=== PATIENT | female | born 1955 | race Caucasian/White ===

== ENCOUNTER 2018-06-22 15:37 | Emergency (ER) | payer OTHER ==
[~2018-06-22] VITALS: Ht 165.1 cm; Wt 70.9 kg
[2018-06-22 15:41] VITALS: Ht 165.1 cm; Wt 70.9 kg
[2018-06-22] MEDS ORDERED: PHEN-537 PO (18:34)
[2018-06-22] MEDS ORDERED: NITR-58 PO (18:34)
[2018-06-22] MEDS ORDERED: KETOROLAC 60 MG INJ IM STA (18:42)
--- NOTE | 2018-06-22 18:46 | ERD ---
ER Documentation Chief Complaint Chief Complaint PT HAS DYSURIA X 3 DAYS 06/02 FREQUENT URINATION HPI History of Present Illness: 63-year-old female with past medical history to include Crohn's disease and hypertension coming in today with complaint of dysuria for 3 days. Patient also reporting urinary frequency patient feels that she is having a little bit of abdominal pain that might be related to her Crohn's disease but does not like the pain is severe enough to be considered a Crohn's flareup. At home pharmacological/nonpharmacological treatment for symptoms: Patient reports drinking non-sweetened cranberry juice Denies social concerns; Denies recent foreign travel ROS All systems reviewed and are negative except as per history of present illness. Medications Home Meds Active Scripts Phenazopyridine Hcl* (Pyridium*) 100 Mg Tab, 100 MG PO TID PRN for URINARY PAIN, #8 TAB Prov:YAN HERNÁNDEZ NP 06/22/18 Nitrofurantoin Monohyd Macrocr* (Macrobid*) 100 Mg Capsr, 100 MG PO BID for BACTERIA IN URINE for 5 Days, CAP Prov:YAN HERNÁDNEZ NP 06/22/18 Allergies Allergies: Coded Allergies: Penicillins (Verified Allergy, Unknown, 06/22/18) PMhx/Soc Medical and Surgical Hx: pt denies Medical Hx, pt denies Surgical Hx Hx Alcohol Use: No Hx Substance Use: No Hx Tobacco Use: No Smoking Status: Never smoker FmHx Family History: No coronary disease Physical Exam Vitals Vital Signs Date Temp Pulse Resp B/P (MAP) Pulse Ox O2 O2 Flow FiO2 Time Delivery Rate 06/22/18 99.6 109 18 170/99 100 15:41 (122) Physical Exam Const: No acute distress Head: Atraumatic Eyes: Normal Conjunctiva ENT: Normal External Ears, Nose and Mouth. Neck: Full range of motion. No meningismus. Resp: Clear to auscultation bilaterally Cardio: Regular rate and rhythm, no murmurs Abd: Soft, suprapubic tenderness, non distended. Normal bowel sounds Skin: No petechiae or rashes Back: No midline or flank tenderness Ext: No cyanosis, or edema Neur: Awake and alert Psych: Normal Mood and Affect Results 24 hrs Laboratory Tests Test 06/22/18 17:44 Urine Color YELLOW Urine Clarity SLIGHTLY CLOUDY Urine pH 7.0 Urine Specific [place] 1.010 Urine Ketones NEGATIVE mg/dL Urine Nitrite NEGATIVE mg/dL Urine Bilirubin NEGATIVE mg/dL Urine Urobilinogen NEGATIVE mg/dL Urine Leukocyte Esterase NEGATIVE Darius/ul Urine Microscopic RBC 6 /HPF Urine Microscopic WBC 2 /HPF Urine Bacteria FEW /HPF Urine Hemoglobin NEGATIVE mg/dL Urine Glucose NEGATIVE mg/dL Urine Total Protein NEGATIVE mg/dl Current Medications Medications Dose Sig/Abimbola Start Time Status Last (Trade) Ordered Route PRN Stop Time Admin Dose Reason Admin Ketorolac 60 mg ONCE STAT 06/22/18 DC Tromethamine IM 18:42 (Toradol) 06/22/18 18:43 10 mg ONCE ONCE 06/22/18 Dexamethasone IM 19:00 (Decadron) 06/22/18 19:01 Procedures/MDM ED course includes a thorough examination and history. Medications: Ketorolac, dexamethasone for abdominal pain; history of Crohn's Imaging: -- Labs: Urinalysis Low suspicion for life-threatening medical emergency. Low suspicion for acute abdominal emergency that requires hospitalization or immediate surgical intervention. Low suspicion for infectious process that requires IV/IM antibiotics. Otherwise healthy patient presenting with constellation of symptoms likely representing uncomplicated bacteria in urine, dysuria as characterized by history, physical exam findings, lab findings. Urinalysis showing few bacteria, 2 WBCs, positive RBCs. No respiratory distress, otherwise relatively well appearing and nontoxic. Educated patient on plan of care for urine culture d due to results of urinalysis and wanting to confirm if Macrobid is the appropriate antibiotic since patient has a penicillin allergy and cephalexin is preferred. Patient educated on diagnoses, prescriptions, follow-up care, return precautions. Strict return precautions given for worsening condition; questions answered discharge. Disposition for discharge with followup in 2 days with PCP/clinic. Departure Diagnosis: Primary Impression: Bacteria in urine Additional Impression: Dysuria Condition: Stable Patient Instructions: Dysuria, Urinary Tract Infections in Women Referrals: COMMUNITY CLINICS YOU HAVE RECEIVED A MEDICAL SCREENING EXAM AND THE RESULTS INDICATE THAT YOU DO NOT HAVE A CONDITION THAT REQUIRES URGENT TREATMENT IN THE EMERGENCY DEPARTMENT. FURTHER EVALUATION AND TREATMENT OF YOUR CONDITION CAN WAIT UNTIL YOU ARE SEEN IN YOUR DOCTORS OFFICE WITHIN THE NEXT 1-2 DAYS. IT IS YOUR RESPONSIBILITY TO MAKE AN APPOINTMENT FOR FOLOW-UP CARE. IF YOU HAVE A PRIMARY DOCTOR --you should call your primary doctor and schedule an appointment IF YOU DO NOT HAVE A PRIMARY DOCTOR YOU CAN CALL OUR PHYSICIAN REFERRAL HOTLINE AT IF YOU CAN NOT AFFORD TO SEE A PHYSICIAN YOU CAN CHOSE FROM THE FOLLOWING [facility] CLINICS [facility] [address] [facility] [address] [facility] [address] [facility] [address] [facility] [address] [facility]. [facility] [address] [facility]. [facility] YOU HAVE RECEIVED A MEDICAL SCREENING EXAM AND THE RESULTS INDICATE THAT YOU DO NOT HAVE A CONDITION THAT REQUIRES URGENT TREATMENT IN THE EMERGENCY DEPARTMENT. FURTHER EVALUATION AND TREATMENT OF YOUR CONDITION CAN WAIT UNTIL YOU ARE SEEN IN YOUR DOCTORS OFFICE WITHIN THE NEXT 1-2 DAYS. IT IS YOUR RESPONSIBILITY TO MAKE AN APPOINTMENT FOR FOLOW-UP CARE. IF YOU HAVE A PRIMARY DOCTOR --you should call your primary doctor and schedule and appointment IF YOU DO NOT HAVE A PRIMARY DOCTOR YOU CAN CALL OUR PHYSICIAN REFERRAL HOTLINE AT . IF YOU CAN NOT AFFORD TO SEE A PHYSICIAN YOU CAN CHOSE FROM THE FOLLOWING [facility] [address] [place] [address] [facility] [address] [place] [address] [facility] [address] [place] [address] Additional Instructions: Thank you very much for allowing us to participate in your care. Your health and safety is our top priority at [facility]. It is important to read all discharge instructions and education provided in your discharge packet. Call your primary care doctor TOMORROW for an appointment during the next 2-4 days and bring all the information and medications prescribed. Have prescriptions filled and follow precisely the directions on the label. -Pyridium is a medication that will help with urinary type pain. This medication will make her urine turn orange. This is a normal side effect of the medication. -Macrobid Is an antibiotic; take this medication as listed on your prescription. You must complete the entire course of treatment that is listed on your prescription this is very important because it takes a certain number of days to kill the bacteria that is causing the infection. If the symptoms get worse and your provider is unavailable, return to the Emergency Department immediately. YAN HERNÁNDEZ NP Jun 22, 2018 18:46
[2018-06-22] MEDS ORDERED: DEXAMETHASONE 10 MG/ML 1 ML INJ IM ONE (19:00)
[2018-06-22 19:03] VITALS: BP 161/80; PULSE 102; RESP 19
== END 2018-06-22 19:05 | disposition home or self-care (01) ==
LOC: FTE 15:37
DX: N39.0 Urinary tract infection, site not specified (principal); I10 Essential (primary) hypertension
CPT/HCPCS: 81001; 96372; J1100; J1885; Z7502; 81003

== ENCOUNTER 2018-07-10 11:49 | Inpatient (IN) | payer OTHER ==
[~2018-07-10] VITALS: Ht 165.1 cm; Wt 68.4 kg
[~2018-07-10 11:49] MED LIST: NITR-58 PO; PHEN-537 PO
[2018-07-10] MEDS ORDERED: ONDANSETRON 4 MG INJ IV STA (12:43)
[2018-07-10] MEDS ORDERED: SOD CHLORIDE 0.9% 1,000 ML IV STA (12:43)
[2018-07-10] MEDS ORDERED: morphine 4 MG/ML VIAL IV STA (13:00)
--- NOTE | 2018-07-10 13:17 | ERD ---
ER Documentation Chief Complaint Chief Complaint FLANK PAIN AND DYSURIA WITH NO RELEIF WITH 5 DAYS OF ABX. NO HEMATURIA HPI 63-year-old female with a history of Crohn's disease presenting with suprapubic pressure-like pain that is a 6 out of 10, radiating to her lower back bilaterally. Symptoms are constant, with no alleviating or exacerbating factors. She has had associated subjective fevers and chills with nausea but no vomiting. She has also been constipated for the past few days with only very small bowel movements. She also complains of dysuria with difficulty urinating. She was here recently and diagnosed with a UTI based on her symptoms and was treated. She feels like she got better but then her symptoms got worse. Due to her symptoms, she has had decreased oral intake and decreased appetite. ROS All systems reviewed and are negative except as per history of present illness. Medications Home Meds Reported Medications Budesonide EC* (Budesonide EC*) 3 Mg Capdr...er, 9 MG PO DAILY, TAB 07/10/18 Amlodipine Besylate* (Amlodipine Besylate*) 10 Mg Tablet, 1 TAB ORAL DAILY 07/10/18 Discontinued Scripts Phenazopyridine Hcl* (Pyridium*) 100 Mg Tab, 100 MG PO TID PRN for URINARY PAIN, #8 TAB Prov:YAN HERNÁNDEZ NP 06/22/18 Nitrofurantoin Monohyd Macrocr* (Macrobid*) 100 Mg Capsr, 100 MG PO BID for BACTERIA IN URINE for 5 Days, CAP Prov:YAN HERNÁNDEZ V CHEMICAL LABORATORY TECHNICIAN 06/22/18 Allergies Allergies: Coded Allergies: Penicillins (Verified Allergy, Unknown, 07/10/18) PMhx/Soc Medical and Surgical Hx: pt denies Surgical Hx History of Surgery: Yes (Bowel resection) Hx Cardiac Disorders: Yes (Hypertension) Hx Miscellaneous Medical Probl: Yes (UTI, crohn's dz) Hx Alcohol Use: No Hx Substance Use: No Hx Tobacco Use: No Smoking Status: Never smoker FmHx Family History: No diabetes Physical Exam Vitals Vital Signs Date Temp Pulse Resp B/P (MAP) Pulse Ox O2 O2 Flow FiO2 Time Delivery Rate 07/10/18 102 18 141/84 100 Nasal 2.0 15:00 (103) Cannula 07/10/18 104 18 130/101 92 Room Air 14:00 (111) 07/10/18 99.4 115 20 151/76 98 11:55 (101) Physical Exam Const: No acute distress Head: Atraumatic Eyes: Normal Conjunctiva ENT: Normal External Ears, Nose and Mouth. Neck: Full range of motion. No meningismus. Resp: Clear to auscultation bilaterally Cardio: Regular rate and rhythm, no murmurs Abd: Soft, mild abdominal distention with diffuse mild tenderness to palpation. Hyperactive bowel sounds in left upper quadrant Skin: No petechiae or rashes Back: No midline or flank tenderness Ext: No cyanosis, or edema Neur: Awake and alert Psych: Normal Mood and Affect Result Diagram: 07/10/18 1253 07/10/18 1253 Results 24 hrs Laboratory Tests Test 07/10/18 12:53 07/10/18 14:15 07/10/18 14:24 White Blood Count 22.9 10^3/ul Red Blood Count 4.32 10^6/ul Hemoglobin 11.6 g/dl Hematocrit 37.3 % Mean Corpuscular Volume 86.3 fl Mean Corpuscular Hemoglobin 26.9 pg Mean Corpuscular 31.1 g/dl Hemoglobin Concent Red Cell Distribution Width 13.2 % Platelet Count 455 10^3/UL Mean Platelet Volume 10.3 fl Immature Granulocytes % 0.900 % Neutrophils % 89.0 % Lymphocytes % 3.8 % Monocytes % 6.1 % Eosinophils % 0.0 % Basophils % 0.2 % Nucleated Red Blood Cells % 0.0 /100WBC Immature Granulocytes # 0.200 10^3/ul Neutrophils # 20.4 10^3/ul Lymphocytes # 0.9 10^3/ul Monocytes # 1.4 10^3/ul Eosinophils # 0.0 10^3/ul Basophils # 0.1 10^3/ul Nucleated Red Blood Cells # 0.0 10^3/ul Urine Color NATALY Urine Clarity CLOUDY Urine pH 5.0 Urine Specific [place] 1.026 Urine Ketones NEGATIVE mg/dL Urine Nitrite NEGATIVE mg/dL Urine Bilirubin 1+ mg/dL Urine Urobilinogen 2+ mg/dL Urine Leukocyte Esterase NEGATIVE Darius/ul Urine Microscopic RBC 34 /HPF Urine Microscopic WBC 14 /HPF Urine Squamous Epithelial Cells FEW /HPF Urine Bacteria FEW /HPF Urine Mucus FEW /HPF Urine Hemoglobin 3+ mg/dL Urine Glucose NEGATIVE mg/dL Urine Total Protein 2+ mg/dl Sodium Level 137 mmol/L Potassium Level 3.7 mmol/L Chloride Level 96 mmol/L Carbon Dioxide Level 31 mmol/L Anion Gap 10 Blood Urea Nitrogen 17 mg/dl Creatinine 0.80 mg/dl Est Glomerular Filtrat > 60 mL/min Rate mL/min Glucose Level 107 mg/dl Calcium Level 9.6 mg/dl Total Bilirubin 0.7 mg/dl Direct Bilirubin 0.00 mg/dl Indirect Bilirubin 0.7 mg/dl Aspartate Amino Transf (AST/SGOT) 34 IU/L Alanine 39 IU/L Aminotransferase (ALT/SGPT) Alkaline Phosphatase 265 IU/L Total Protein 8.2 g/dl Albumin 4.1 g/dl Globulin 4.10 g/dl Albumin/Globulin Ratio 1.00 Prothrombin Time 14.5 Sec Prothrombin Time Ratio 1.1 INR International 1.12 Normalized Ratio Activated Partial Thromboplast 29.4 Sec Time POC Venous Lactate 1.8 mmol/L Current Medications Medications Dose Sig/Abimbola Start Time Status Last (Trade) Ordered Route PRN Stop Time Admin Dose Reason Admin Sodium 1,000 ml @ Q1H STAT 07/10/18 DC 07/10/18 Chloride 1,000 mls/hr IV 12:43 13:50 07/10/18 13:42 Ondansetron 4 mg ONCE STAT 07/10/18 DC 07/10/18 HCl (Zofran IV 12:43 13:50 Inj) 07/10/18 12:45 Morphine 4 mg ONCE STAT 07/10/18 DC 07/10/18 Sulfate IV 13:00 13:50 (morphine) 07/10/18 13:01 Sodium 1,050 ml BOLUS OVER 2 07/10/18 DC 07/10/18 Chloride HOURS STAT 14:04 14:42 (NS) IV* 07/10/18 14:07 100 ml @ ONCE STAT 07/10/18 DC 07/10/18 Metronidazole 100 mls/hr IVPB 14:04 15:24 07/10/18 15:03 Ceftriaxone 50 ml @ ONCE ONCE 07/10/18 DC 07/10/18 Sodium 100 mls/hr IVPB 14:30 14:42 07/10/18 14:59 Procedures/MDM EMERGENT LABS AND DIAGNOSTIC STUDIES: Lab Results above were reviewed and interpreted by me. CBC: Leukocytosis and thrombocytosis, concerning for acute infection CMP: No evidence of clinically significant electrolyte abnormality, acidosis, renal failure, hypoglycemia, liver disease, or biliary obstruction UA: abnormal, possible UTI Radiology Results as interpreted by Radiology below were reviewed by Maico Reyes MD: CT abdomen and pelvis: Acute colitis with fluid collection and mesentery Initial Nursing notes reviewed. Previous Medical Records requested via the Electronic Health Record. EMERGENCY DEPARTMENT COURSE / MEDICAL DECISION MAKING: Admit MDM: Patient is presenting with abdominal pain and work-up consistent with acute colitis with intra-abdominal fluid collection. There is no evidence of severe sepsis or septic shock at this time. She will require surgical evaluation. Patient's infectious symptoms have not stabilized, and the patient is at risk of rapid decompensation. The patient will be admitted for careful hydration, antibiotic therapy, and infectious source control. Patient did meet sepsis criteria once it was noted that she had colitis on CT. However her lactate is within normal limits and there is no evidence of severe sepsis or septic shock. She was treated with IV antibiotics. Accepting Care Team: Current data and ongoing care discussed. Time: Time of admission Primary Provider: Dr. Lara Consulting: Dr. Murray with surgery Outstanding Data: none Departure Diagnosis: Primary Impression: Acute colitis Additional Impression: Sepsis Sepsis type: sepsis due to unspecified organism Qualified Codes: A41.9 - Sepsis, unspecified organism Condition: Serious VLADIMIR REYES MD July 10, 2018 13:17
[2018-07-10] MEDS ORDERED: metroNIDAZOLE 500 MG/NS (PMX) 100 ML IVPB STA (14:04)
[2018-07-10] MEDS ORDERED: SODIUM CHLORIDE 0.9% 1L BAG IV* STA (14:04)
[2018-07-10] MEDS ORDERED: AMLO-147 ORAL (14:30)
[2018-07-10] MEDS ORDERED: CEFTRIAXONE 1 GM/50 ML (PMX) 50 ML IVPB ONE (14:30)
[2018-07-10] MEDS ORDERED: BUDE3CAP PO (14:30)
[2018-07-10] MEDS ORDERED: ONDANSETRON 4 MG INJ IV PRN ×2 (15:30)
[2018-07-10] MEDS: ACETAMINOPHEN 325 MG TAB PO PRN (16:41)
[2018-07-10] MEDS: DEXTROSE 5%-0.45% NACL 1,000 ML IV SCH (16:45)
[2018-07-10] MEDS: LEVOFLOXACIN 500MG/D5W (PMX) 100 ML IVPB SCH (16:45)
[2018-07-10 18:17] VITALS: Ht 165.1 cm; Wt 68.4 kg
[2018-07-10 18:27] VITALS: BP 126/65; PULSE 97; RESP 17
[2018-07-10 20:10] VITALS: BP 117/67; PULSE 93; RESP 16
--- NOTE | 2018-07-10 20:34 | HP ---
DATE OF ADMISSION: 07/10/2018 CHIEF COMPLAINT: Abdominal pain. HISTORY OF PRESENT ILLNESS: A 63-year-old female with a history of Crohn's disease status post right hemicolectomy, presented to emergency room with complaint of lower abdominal pain radiating to her b ack. The pain has been constant and associated with subjective fevers and nausea. The patient denie s any vomiting. She denies hematemesis. No bright red blood per rectum. No melena. The patient re ports anorexia. Initial evaluation revealed a temperature of 99.4. White blood cell count was elevated to 22,900. C AT scan of the abdomen and pelvis showed acute sigmoid colitis with chronic inflammatory changes as w ell as irregular fluid collection in the adjacent mesentery which appears to track to the sigmoid col on, may represent a fistula. Urinalysis shows 14 WBC with 3+ RBC, but leukocyte esterase was negativ e. PAST MEDICAL HISTORY: 1. Crohn's disease. 2. Hypertension. MEDICATIONS PRIOR TO ADMISSION: 1. Norvasc 10 mg p.o. daily. 2. Budesonide 9 mg p.o. daily. PAST SURGICAL HISTORY: Status post right hemicolectomy, status post hysterectomy. SOCIAL HISTORY: The patient lives at home. She denies tobacco or alcohol use. PHYSICAL EXAMINATION: GENERAL: Well-developed, well-nourished female who is in mild distress. VITAL SIGNS: Stable. Pulse rate was 110. HEENT: Extraocular muscles intact. Pupils are equal and reactive to light bilaterally. Sclerae are anicteric. Oropharynx is clear and moist. NECK: Supple, no JVD, no carotid bruits. LUNGS: Clear to auscultation bilaterally. CARDIAC: Rapid rate. No murmurs or gallops. ABDOMEN: Soft, diffusely tender to palpation, especially in the left lower quadrant region. Normoac tive bowel sounds. EXTREMITIES: No clubbing, cyanosis, or edema. NEUROLOGICAL: Nonfocal. LABORATORY DATA: Hemoglobin is 11.6. Basic metabolic panel is within normal limits. Albumin is 4.1 . Serum lactate is 1.8. ASSESSMENT: 1. A 63-year-old female with acute sigmoid colitis most probably representing Crohn's exacerbation. 2. Fluid collection in the mesentery adjacent to the sigmoid colon. Rule out fistula. 3. Hypertension. 4. Status post right hemicolectomy. 5. Status post hysterectomy. PLAN: 1. Admit to telemetry, n.p.o., IV Levaquin and Flagyl. 2. IV fluid hydration. 3. Pain control. 4. Antiemetics. 5. Surgical and GI consultations were requested. Dictated By: EMIL RUIZ/TOMMY Conf#: [id number] DID#: [id number]
[2018-07-10] MEDS: morphine 2 MG INJ IV PRN (21:29)
[2018-07-11] MEDS: metroNIDAZOLE 500 MG/NS (PMX) 100 ML IVPB SCH ×4 (00:46→21:06)
[2018-07-11] MEDS: DEXTROSE 5%-0.45% NACL 1,000 ML IV SCH ×3 (00:49→21:30)
[2018-07-11 01:45] VITALS: BP 127/68; PULSE 103; RESP 18
[2018-07-11] MEDS: ACETAMINOPHEN 325 MG TAB PO PRN (03:33)
[2018-07-11 08:18] VITALS: BP 131/67; PULSE 83; RESP 17
--- NOTE | 2018-07-11 10:14 | PN ---
Date/Time of Note Date/Time of Note DATE: 07/11/18 TIME: 10:12 Subjective Doing well. Less abdominal pain. No nausea or vomiting. Having flatus Objective Vitals Vital Signs Date Temp Pulse Resp B/P (MAP) Pulse Ox O2 O2 Flow FiO2 Time Delivery Rate 07/11/18 99.4 83 17 131/67 100 08:18 (88) 07/10/18 Room Air 18:27 07/10/18 2.0 17:18 Intake and Output 07/10/18 07/10/18 07/11/18 1515:00 23:00 07:00 IntakeIntake Total 100 ml 1100 ml BalanceBalance 100 ml 1100 ml Clear to auscultation bilaterally Regular rate and rhythm no murmurs or gallops Soft. Lower abdominal tenderness to palpation. Normoactive bowel sounds No edema Nonfocal Results Result Diagram: 07/10/18 1253 07/10/18 1253 Medications Medications Current Medications Ondansetron HCl (Zofran Inj) 4 mg BRIDGE ORDER PRN IV NAUSEA/VOMITING; Start 07/10/18 at 15:30; Stop 07/11/18 at 15:29 Acetaminophen (Tylenol Tab) 650 mg ER BRIDGE PRN PO .MILD PAIN 1-3 OR TEMP Last administered on 07/11/18 03:33; Admin Dose 650 MG; Start 07/10/18 at 15:30; Stop 07/11/18 at 15:29 Dextrose/Sodium Chloride 1,000 ml @ 100 mls/hr Q10H IV Last administered on 07/11/18 04:40; Admin Dose 100 MLS/HR; Start 07/10/18 at 15:30 Morphine Sulfate (morphine) 2 mg Q3 PRN IV moderate pain Last administered on 07/10/18 21:29; Admin Dose 2 MG; Start 07/10/18 at 15:30 Ondansetron HCl (Zofran Inj) 4 mg Q4 PRN IV nausea; Start 07/10/18 at 15:30 Levofloxacin/ Dextrose 100 ml @ 100 mls/hr DAILY IVPB Last administered on 07/10/18 16:45; Admin Dose 100 MLS/HR; Start 07/10/18 at 15:30 Metronidazole 100 ml @ 100 mls/hr Q8 IVPB Last administered on 07/11/18 09:00; Admin Dose 100 MLS/HR; Start 07/11/18 at 00:00 VTE [place] [facility] [place]: 3 [place] [facility] [place] Lines/Catheters IV Catheter Type: Saline Lock [place] in Place: No Assessment/Plan Assessment/Plan 62-year-old female with lower abdominal pain History of Crohn's with exacerbation Acute sigmoid colitis Fluid collection adjacent to sigmoid. Rule out fistula formation Leukocytosis History of right hemicolectomy Status post hysterectomy Continue Levaquin and Flagyl N.p.o. Surgical and GI follow-up EMIL MORFIN MD July 11, 2018 10:14
[2018-07-11] MEDS: LEVOFLOXACIN 500MG/D5W (PMX) 100 ML IVPB SCH (10:27)
[2018-07-11] MEDS ORDERED: IOHEXOL 14.3 MG(I)/ML (ADULT) BTL PO ONE (11:00)
--- NOTE | 2018-07-11 12:50 | CONS ---
Assessment/Plan Assessment/Plan Assessment/Plan (Daily) Sigmoid colitis possible abscess versus other fluid collection possibility of fistula though no demonstrated fistula tract is identified. History of Crohn's colitis. Status post transverse colon partial segmentectomy graph recent colonoscopy. Plan discussed with radiology for percutaneous drainage and placement of catheter. Will continue with IV antibiotics IV fluids. GI consultation as well. Consultation Date/Type/Reason Admit Date/Time July 10, 2018 at 15:19 Date of Consultation: July 11, 2018 Type of Consult Surgery Reason for Consultation History of Crohn's, question of fluid collection possible with abscess or Crohn's fistula Requesting Provider: EMIL MORFIN MD Date/Time of Note DATE: 07/11/18 TIME: 12:49 Hx of Present Illness Patient presented to the emergency room with lower abdominal pain 2 days origin. Patient recently had colonoscopy by Dr. roberts of 3 weeks ago in follow-up for Crohn's. Patient has a history of Crohn's colitis had a segmental transverse colon resection approximately 15 years ago. Patient does take Entocort 3 mg 3 a day. Patient denies, fever or chills. 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 CAT scan abdomen pelvis shows fluid collection medial to the sigmoid colon which appears to be amenable to percutaneous drainage initial reading was possible fistula tract and it reviewed with the radiologist today does not appear that this is consistent with fistula. Past Medical History Home Meds Reported Medications Budesonide EC* (Budesonide EC*) 3 Mg Capdr...er, 9 MG PO DAILY, TAB 07/10/18 Amlodipine Besylate* (Amlodipine Besylate*) 10 Mg Tablet, 1 TAB ORAL DAILY 07/10/18 Discontinued Scripts Phenazopyridine Hcl* (Pyridium*) 100 Mg Tab, 100 MG PO TID PRN for URINARY PAIN, #8 TAB Prov:YAN HERNÁNDEZ V PULP COOKER 06/22/18 Nitrofurantoin Monohyd Macrocr* (Macrobid*) 100 Mg Capsr, 100 MG PO BID for BACTERIA IN URINE for 5 Days, CAP Prov:YAN HERNÁNDEZ V PULP COOKER 06/22/18 Medications Current Medications Ondansetron HCl (Zofran Inj) 4 mg BRIDGE ORDER PRN IV NAUSEA/VOMITING; Start 07/10/18 at 15:30; Stop 07/11/18 at 15:29 Acetaminophen (Tylenol Tab) 650 mg ER BRIDGE PRN PO .MILD PAIN 1-3 OR TEMP Last administered on 07/11/18 03:33; Admin Dose 650 MG; Start 07/10/18 at 15:30; Stop 07/11/18 at 15:29 Dextrose/Sodium Chloride 1,000 ml @ 100 mls/hr Q10H IV Last administered on 07/11/18 04:40; Admin Dose 100 MLS/HR; Start 07/10/18 at 15:30 Morphine Sulfate (morphine) 2 mg Q3 PRN IV moderate pain Last administered on 07/10/18 21:29; Admin Dose 2 MG; Start 07/10/18 at 15:30 Ondansetron HCl (Zofran Inj) 4 mg Q4 PRN IV nausea; Start 07/10/18 at 15:30 Levofloxacin/ Dextrose 100 ml @ 100 mls/hr DAILY IVPB Last administered on 07/11/18 10:27; Admin Dose 100 MLS/HR; Start 07/10/18 at 15:30 Metronidazole 100 ml @ 100 mls/hr Q8 IVPB Last administered on 07/11/18 09:00; Admin Dose 100 MLS/HR; Start 07/11/18 at 00:00 Allergies: Coded Allergies: Penicillins (Verified Allergy, Unknown, 07/10/18) Social History Smoking Status: Never smoker Exam/Review of Systems Exam Vitals Vital Signs Date Temp Pulse Resp B/P (MAP) Pulse Ox O2 O2 Flow FiO2 Time Delivery Rate 07/11/18 99.4 83 17 131/67 100 08:18 (88) 07/10/18 Room Air 18:27 07/10/18 2.0 17:18 Intake and Output 07/10/18 07/10/18 07/11/18 1515:00 23:00 07:00 IntakeIntake Total 100 ml 1100 ml BalanceBalance 100 ml 1100 ml Exam A&O x3. Lungs clear to auscultation. Heart regular rate and rhythm without gallops murmurs or rubs normal S1-S2. Abdomen soft nondistended well-healed upper midline incision from past colectomy. No rebound or focal tenderness Results Result Diagram: 07/10/18 1253 07/10/18 1253 Results 24hrs Laboratory Tests Test 07/10/18 12:53 07/10/18 14:15 07/10/18 14:24 07/10/18 16:28 White Blood Count 22.9 H Red Blood Count 4.32 Hemoglobin 11.6 L Hematocrit 37.3 Mean Corpuscular 86.3 Volume Mean Corpuscular 26.9 L Hemoglobin Mean Corpuscular 31.1 L Hemoglobin Concent Red Cell 13.2 Distribution Width Platelet Count 455 H Mean Platelet Volume 10.3 Immature 0.900 H Granulocytes % Neutrophils % 89.0 H Lymphocytes % 3.8 L Monocytes % 6.1 Eosinophils % 0.0 Basophils % 0.2 Nucleated Red Blood 0.0 Cells % Immature 0.200 H Granulocytes # Neutrophils # 20.4 H Lymphocytes # 0.9 Monocytes # 1.4 H Eosinophils # 0.0 Basophils # 0.1 Nucleated Red Blood 0.0 Cells # Urine Color NATALY Urine Clarity CLOUDY A Urine pH 5.0 Urine Specific 1.026 [place] Urine Ketones NEGATIVE Urine Nitrite NEGATIVE Urine Bilirubin 1+ H Urine Urobilinogen 2+ H Urine Leukocyte NEGATIVE Esterase Urine Microscopic 34 H RBC Urine Microscopic 14 H WBC Urine Squamous FEW Epithelial Cells Urine Bacteria FEW A Urine Mucus FEW A Urine Hemoglobin 3+ H Urine Glucose NEGATIVE Urine Total Protein 2+ H Sodium Level 137 Potassium Level 3.7 Chloride Level 96 L Carbon Dioxide Level 31 Anion Gap 10 Blood Urea Nitrogen 17 Creatinine 0.80 Est Glomerular > 60 Filtrat Rate mL/min Glucose Level 107 Calcium Level 9.6 Total Bilirubin 0.7 Direct Bilirubin 0.00 Indirect Bilirubin 0.7 Aspartate Amino 34 Transf (AST/SGOT) Alanine 39 Aminotransferase (AL T/SGPT) Alkaline Phosphatase 265 H Total Protein 8.2 H Albumin 4.1 Globulin 4.10 H Albumin/Globulin 1.00 Ratio Prothrombin Time 14.5 Prothrombin Time 1.1 Ratio INR International 1.12 Normalized Ratio Activated 29.4 Partial Thromboplast Time POC Venous Lactate 1.8 Lactic Acid Level 1.9 Test 07/10/18 18:14 Lactic Acid Level 0.7 Medications Medication Current Medications Ondansetron HCl (Zofran Inj) 4 mg BRIDGE ORDER PRN IV NAUSEA/VOMITING; Start 07/10/18 at 15:30; Stop 07/11/18 at 15:29 Acetaminophen (Tylenol Tab) 650 mg ER BRIDGE PRN PO .MILD PAIN 1-3 OR TEMP Last administered on 07/11/18at 03:33; Admin Dose 650 MG; Start 07/10/18 at 15:30; Stop 07/11/18 at 15:29 Dextrose/Sodium Chloride 1,000 ml @ 100 mls/hr Q10H IV Last administered on 07/11/18at 04:40; Admin Dose 100 MLS/HR; Start 07/10/18 at 15:30 Morphine Sulfate (morphine) 2 mg Q3 PRN IV moderate pain Last administered on 07/10/18at 21:29; Admin Dose 2 MG; Start 07/10/18 at 15:30 Ondansetron HCl (Zofran Inj) 4 mg Q4 PRN IV nausea; Start 07/10/18 at 15:30 Levofloxacin/ Dextrose 100 ml @ 100 mls/hr DAILY IVPB Last administered on 07/11/18at 10:27; Admin Dose 100 MLS/HR; Start 07/10/18 at 15:30 Metronidazole 100 ml @ 100 mls/hr Q8 IVPB Last administered on 07/11/18at 09:00; Admin Dose 100 MLS/HR; Start 07/11/18 at 00:00 AIMEE ESQUIVEL MD July 11, 2018 12:50
[2018-07-11] MEDS ORDERED: LIDOCAINE 1% (MDV) 20 ML INJ ONE (13:11)
[2018-07-11] MEDS ORDERED: MIDAZOLAM 1 MG/ML 2 ML INJ ONE (13:11)
[2018-07-11] MEDS ORDERED: FENTAnyl 50 MCG/ML VIAL ONE (13:11)
--- NOTE | 2018-07-11 14:11 | CONS ---
Assessment/Plan Assessment/Plan Assessment/Plan (Daily) Assessment: Crohn's disease exacerbation Sigmoid colitis with abscess likely secondary to above Leukocytosis secondary to above HTN Hx of right hemicolectomy Plan: Keep NPO for now Agree with percutaneous drain placement. Broad spectrum antibiotics with Levaquin/Flagyl. Monitor CBC and trend WBC. Will hold off on resuming steroids until infection improves. Patient seen in collaboration with Dr. Lazo CC: SHAQ LAZO ; Consultation Date/Type/Reason Admit Date/Time July 10, 2018 at 15:19 Date of Consultation: July 11, 2018 Type of Consult gastroenterology Reason for Consultation Crohn's disease, sigmoid colitis and abscess Requesting Provider: EMIL MORFIN MD Date/Time of Note DATE: 07/11/18 TIME: 13:59 Hx of Present Illness Ms. Wilburn is a 63 y/o woman with a history of HTN and Crohn's disease status post right hemicolectomy who is admitted with a history of abdominal pain, fevers, and weakness for the past 3 days. She had a CT scan of the abdomen and pelvis which showed sigmoid colitis with an adjacent abscess concerning for a possible fistula. This was also associated with leukocytosis of 22k and she was started on antibiotics with levaquin and flagyl. She had a colonoscopy by Dr. Landeros about 3 weeks ago for follow up. She takes Entocort 3 mg 3 times daily. She was seen by the surgical team and is currently having a percutaneous drain placement. Per surgeon's note the CT was reviewed with the radiologist and there is no evidence of fistula. She is off the unit for the procedure at this time, and thus history is obtained from the family members in the room and chart review. A 10 point review of systems is otherwise negative except as mentioned in the above HPI. Subjective hx not possible: other (patient not in room) Past Medical History Home Meds Reported Medications Budesonide EC* (Budesonide EC*) 3 Mg Capdr...er, 9 MG PO DAILY, TAB 07/10/18 Amlodipine Besylate* (Amlodipine Besylate*) 10 Mg Tablet, 1 TAB ORAL DAILY 07/10/18 Discontinued Scripts Phenazopyridine Hcl* (Pyridium*) 100 Mg Tab, 100 MG PO TID PRN for URINARY PAIN, #8 TAB Prov:YAN HERNÁNDEZ V [employer] 06/22/18 Nitrofurantoin Monohyd Macrocr* (Macrobid*) 100 Mg Capsr, 100 MG PO BID for BACTERIA IN URINE for 5 Days, CAP Prov:YAN HERNÁNDEZ V [employer] DIRECT[employer] 06/22/18 Medications Current Medications Ondansetron HCl (Zofran Inj) 4 mg BRIDGE ORDER PRN IV NAUSEA/VOMITING; Start 07/10/18 at 15:30; Stop 07/11/18 at 15:29 Acetaminophen (Tylenol Tab) 650 mg ER BRIDGE PRN PO .MILD PAIN 1-3 OR TEMP Last administered on 07/11/18at 03:33; Admin Dose 650 MG; Start 07/10/18 at 15:30; Stop 07/11/18 at 15:29 Dextrose/Sodium Chloride 1,000 ml @ 100 mls/hr Q10H IV Last administered on 07/11/18at 04:40; Admin Dose 100 MLS/HR; Start 07/10/18 at 15:30 Morphine Sulfate (morphine) 2 mg Q3 PRN IV moderate pain Last administered on 07/10/18at 21:29; Admin Dose 2 MG; Start 07/10/18 at 15:30 Ondansetron HCl (Zofran Inj) 4 mg Q4 PRN IV nausea; Start 07/10/18 at 15:30 Levofloxacin/ Dextrose 100 ml @ 100 mls/hr DAILY IVPB Last administered on 07/11/18at 10:27; Admin Dose 100 MLS/HR; Start 07/10/18 at 15:30 Metronidazole 100 ml @ 100 mls/hr Q8 IVPB Last administered on 07/11/18at 0 9:00; Admin Dose 100 MLS/HR; Start 07/11/18 at 00:00 Allergies: Coded Allergies: Penicillins (Verified Allergy, Unknown, 07/10/18) Social History Smoking Status: Never smoker Exam/Review of Systems Exam Vitals Vital Signs Date Temp Pulse Resp B/P (MAP) Pulse Ox O2 O2 Flow FiO2 Time Delivery Rate 07/11/18 99.4 83 17 131/67 100 08:18 (88) 07/10/18 Room Air 18:27 07/10/18 2.0 17:18 Intake and Output 07/10/18 07/10/18 07/11/18 1515:00 23:00 07:00 IntakeIntake Total 100 ml 1100 ml BalanceBalance 100 ml 1100 ml Exam Patient is not in room at time of evaluation. Off the unit for percutaneous drain placement. Results Result Diagram: 07/10/18 1253 07/10/18 1253 Results 24hrs Laboratory Tests Test 07/10/18 14:15 07/10/18 14:24 07/10/18 16:28 07/10/18 18:14 Prothrombin Time 14.5 Prothrombin Time 1.1 Ratio INR International 1.12 Normalized Ratio Activated 29.4 Partial Thromboplast Time POC Venous Lactate 1.8 Lactic Acid Level 1.9 0.7 Medications Medication Current Medications Ondansetron HCl (Zofran Inj) 4 mg BRIDGE ORDER PRN IV NAUSEA/VOMITING; Start 07/10/18 at 15:30; Stop 07/11/18 at 15:29 Acetaminophen (Tylenol Tab) 650 mg ER BRIDGE PRN PO .MILD PAIN 1-3 OR TEMP Last administered on 07/11/18 03:33; Admin Dose 650 MG; Start 07/10/18 at 15:30; Stop 07/11/18 at 15:29 Dextrose/Sodium Chloride 1,000 ml @ 100 mls/hr Q10H IV Last administered on 07/11/18 04:40; Admin Dose 100 MLS/HR; Start 07/10/18 at 15:30 Morphine Sulfate (morphine) 2 mg Q3 PRN IV moderate pain Last administered on 07/10/18 21:29; Admin Dose 2 MG; Start 07/10/18 at 15:30 Ondansetron HCl (Zofran Inj) 4 mg Q4 PRN IV nausea; Start 07/10/18 at 15:30 Levofloxacin/ Dextrose 100 ml @ 100 mls/hr DAILY IVPB Last administered on 07/11/18at 10:27; Admin Dose 100 MLS/HR; Start 07/10/18 at 15:30 Metronidazole 100 ml @ 100 mls/hr Q8 IVPB Last administered on 07/11/18at 09:00; Admin Dose 100 MLS/HR; Start 07/11/18 at 00:00 ROGELIO EVERETT NP July 11, 2018 14:10
[2018-07-11] MEDS: morphine 2 MG INJ IV PRN ×2 (17:55→21:04)
[2018-07-11 20:01] VITALS: BP 137/68; PULSE 89; RESP 16
[2018-07-12] MEDS: morphine 2 MG INJ IV PRN ×3 (00:08→21:40)
[2018-07-12] MEDS: DEXTROSE 5%-0.45% NACL 1,000 ML IV SCH ×2 (00:10→07:30)
[2018-07-12 02:27] VITALS: BP 138/73; PULSE 86; RESP 16
[2018-07-12] MEDS: metroNIDAZOLE 500 MG/NS (PMX) 100 ML IVPB SCH ×3 (05:30→21:39)
[2018-07-12 08:01] VITALS: BP 125/69; PULSE 83; RESP 17
[2018-07-12] MEDS: LEVOFLOXACIN 500MG/D5W (PMX) 100 ML IVPB SCH (08:40)
--- NOTE | 2018-07-12 09:36 | PN ---
Date/Time of Note Date/Time of Note DATE: 07/12/18 TIME: 09:30 Subjective Reports feeling better. Less abdominal pain. No nausea or vomiting. Objective Vitals Vital Signs Date Temp Pulse Resp B/P (MAP) Pulse Ox O2 O2 Flow FiO2 Time Delivery Rate 07/12/18 98.3 83 17 125/69 99 08:01 (87) 07/10/18 Room Air 18:27 07/10/18 2.0 17:18 Intake and Output 07/11/18 07/11/18 07/12/18 1414:59 22:59 06:59 IntakeIntake Total 680 ml 1270 ml 1880 ml OutputOutput Total 5 ml 510 ml BalanceBalance 680 ml 1265 ml 1370 ml Clear to auscultation bilaterally Regular rate and rhythm Soft left lower quadrant tenderness to palpation. No rebound or guarding. Normoactive bowel sounds. KRISTINE drain in place with small amount of serosanguineous fluid No edema Nonfocal Results Result Diagram: 07/12/18 0503 07/12/18 0503 Medications Medications Current Medications Dextrose/Sodium Chloride 1,000 ml @ 100 mls/hr Q10H IV Last administered on 07/12/18at 00:10; Admin Dose 100 MLS/HR; Start 07/10/18 at 15:30 Morphine Sulfate (morphine) 2 mg Q3 PRN IV moderate pain Last administered on 07/12/18at 05:29; Admin Dose 2 MG; Start 07/10/18 at 15:30 Ondansetron HCl (Zofran Inj) 4 mg Q4 PRN IV nausea; Start 07/10/18 at 15:30 Levofloxacin/ Dextrose 100 ml @ 100 mls/hr DAILY IVPB Last administered on 07/12/18at 08:40; Admin Dose 100 MLS/HR; Start 07/10/18 at 15:30 Metronidazole 100 ml @ 100 mls/hr Q8 IVPB Last administered on 07/12/18at 05:30; Admin Dose 100 MLS/HR; Start 07/11/18 at 00:00 VTE Prophylaxis Risk score (from Nsg)>0 risk: 3 SCD applied (from Nsg): Yes Lines/Catheters IV Catheter Type: Saline Lock Lock[place] in Place: No Assessment/Plan Assessment/Plan 63-year-old female with acute sigmoid colitis Crohn's exacerbation Pericolonic fluid collection. Status post drainage and intra-abdominal catheter placement Hypertension Continue IV antibiotics Check fluid culture results Surgery and GI follow-up Discharge planning on oral antibiotics once a stable Monitor CBC EMIL MORFIN MD July 12, 2018 09:36
[2018-07-12] MEDS: D5W-0.45 NACL + KCL 30 MEQ 1,000 ML IV SCH ×3 (11:50→23:34)
--- NOTE | 2018-07-12 15:03 | PN ---
Date/Time of Note Date/Time of Note DATE: 07/12/18 TIME: 15:01 Assessment/Plan VTE Prophylaxis Risk score (from Ns)>0 risk: 3 SCD applied (from Ns): Yes Pharmacological prophylaxis: other (scds) Lines/Catheters IV Catheter Type (from [facility]): Saline Lock Urinary Cath still in place: No Assessment/Plan Hospital Course Assessment: Crohn's disease exacerbation Sigmoid colitis with abscess likely secondary to above -Status post drainage and intra-abdominal catheter placement ' - Cx Preliminary: GRAM NEGATIVE MAGGY Leukocytosis secondary to above- improved HTN Hx of right hemicolectomy Normocytic anemia Plan: Clear liquid diet Continue broad spectrum antibiotics with Levaquin/Flagyl. Monitor labs Will hold off on resuming steroids at this time . Patient seen in collaboration with Dr. Landeros Subjective: Course reviewed with nursing staff Patient interviewed and examined All labs, imaging and other results reviewed The patient states she feels much better today, drain in place. Encourage ambulation as tolerated, maintain close observation. PHYSICAL EXAMINATION: GENERAL: Well developed, well nourished, alert & oriented x 3, in no acute distress SKIN: No lesions, no stigmata chronic liver disease, no evidence of bleeding diathesis HEAD: Normocephalic, atraumatic, no tenderness. EYES: Pupils equal reactive to light and accommodation, full extraocular movements, sclera clear, non-icteric, no discharge. EARS/NOSE AND THROAT: Ears normal, nose normal, oropharynx normal, oral membranes well hydrated without lesions. NECK: Supple, no masses. CHEST: Inspection within normal limits. CARDIOVASCULAR: Heart: Regular rate and rhythm RESPIRATORY: Lungs clear to auscultation GASTROINTESTINAL AND LIVER: Abdomen: Soft, non tenderness, non-distended, no hernias, no masses, no organomegaly, no ascites, no guarding, no rebound tenderness, normoactive bowel sounds. Rectal: Deferred. Result Diagram: 07/12/18 0503 07/12/18 0503 Results 24hrs Laboratory Tests Test 07/12/18 05:03 White Blood Count 12.7 #H Red Blood Count 3.61 L Hemoglobin 9.7 L Hematocrit 31.7 L Mean Corpuscular Volume 87.8 Mean Corpuscular Hemoglobin 26.9 L Mean Corpuscular Hemoglobin Concent 30.6 L Red Cell Distribution Width 13.4 Platelet Count 456 H Mean Platelet Volume 10.0 Immature Granulocytes % 0.400 Neutrophils % 83.9 H Lymphocytes % 8.9 L Monocytes % 6.1 Eosinophils % 0.4 Basophils % 0.3 Nucleated Red Blood Cells % 0.0 Immature Granulocytes # 0.050 H Neutrophils # 10.7 H Lymphocytes # 1.1 Monocytes # 0.8 Eosinophils # 0.1 Basophils # 0.0 Nucleated Red Blood Cells # 0.0 Sodium Level 141 Potassium Level 3.4 L Chloride Level 102 Carbon Dioxide Level 34 H Anion Gap 5 Blood Urea Nitrogen 6 #L Creatinine 0.59 Est Glomerular Filtrat Rate mL/min > 60 Glucose Level 132 Calcium Level 9.0 Exam/Review of Systems Exam Vitals Vital Signs Date Temp Pulse Resp B/P (MAP) Pulse Ox O2 O2 Flow FiO2 Time Delivery Rate 07/12/18 98.3 83 17 125/69 99 08:01 (87) 07/10/18 Room Air 18:27 07/10/18 2.0 17:18 Intake and Output 07/11/18 07/11/18 07/12/18 1515:00 23:00 07:00 IntakeIntake Total 680 ml 1270 ml 1880 ml OutputOutput Total 5 ml 510 ml BalanceBalance 680 ml 1265 ml 1370 ml Results Results 24hrs Laboratory Tests Test 07/12/18 05:03 White Blood Count 12.7 #H Red Blood Count 3.61 L Hemoglobin 9.7 L Hematocrit 31.7 L Mean Corpuscular Volume 87.8 Mean Corpuscular Hemoglobin 26.9 L Mean Corpuscular Hemoglobin Concent 30.6 L Red Cell Distribution Width 13.4 Platelet Count 456 H Mean Platelet Volume 10.0 Immature Granulocytes % 0.400 Neutrophils % 83.9 H Lymphocytes % 8.9 L Monocytes % 6.1 Eosinophils % 0.4 Basophils % 0.3 Nucleated Red Blood Cells % 0.0 Immature Granulocytes # 0.050 H Neutrophils # 10.7 H Lymphocytes # 1.1 Monocytes # 0.8 Eosinophils # 0.1 Basophils # 0.0 Nucleated Red Blood Cells # 0.0 Sodium Level 141 Potassium Level 3.4 L Chloride Level 102 Carbon Dioxide Level 34 H Anion Gap 5 Blood Urea Nitrogen 6 #L Creatinine 0.59 Est Glomerular Filtrat Rate mL/min > 60 Glucose Level 132 Calcium Level 9.0 Medications Medication Current Medications Morphine Sulfate (morphine) 2 mg Q3 PRN IV moderate pain Last administered on 07/12/18 05:29; Admin Dose 2 MG; Start 07/10/18 at 15:30 Ondansetron HCl (Zofran Inj) 4 mg Q4 PRN IV nausea; Start 07/10/18 at 15:30 Levofloxacin/ Dextrose 100 ml @ 100 mls/hr DAILY IVPB Last administered on 07/12/18at 08:40; Admin Dose 100 MLS/HR; Start 07/10/18 at 15:30 Metronidazole 100 ml @ 100 mls/hr Q8 IVPB Last administered on 07/12/18at 13:44; Admin Dose 100 MLS/HR; Start 07/11/18 at 00:00 Potassium Chloride/Dextrose/ Sod Cl 1,000 ml @ 100 mls/hr Q10H IV Last administered on 07/12/18at 11:50; Admin Dose 100 MLS/HR; Start 07/12/18 at 11:30 GEMMA LAGOS July 12, 2018 15:03
[2018-07-12 15:22] VITALS: BP 138/69; PULSE 88; RESP 16
[2018-07-12 20:26] VITALS: BP 145/83; PULSE 91; RESP 16
[2018-07-13 01:27] VITALS: BP 147/75; PULSE 91; RESP 16
[2018-07-13] MEDS: morphine 2 MG INJ IV PRN ×2 (05:40→10:43)
[2018-07-13] MEDS: metroNIDAZOLE 500 MG/NS (PMX) 100 ML IVPB SCH ×3 (05:40→21:17)
[2018-07-13] MEDS: D5W-0.45 NACL + KCL 30 MEQ 1,000 ML IV SCH ×2 (07:30→12:11)
[2018-07-13 07:48] VITALS: BP 140/70; PULSE 94; RESP 17
[2018-07-13] MEDS: LEVOFLOXACIN 500MG/D5W (PMX) 100 ML IVPB SCH (08:58)
--- NOTE | 2018-07-13 09:57 | PN ---
Date/Time of Note Date/Time of Note DATE: 07/13/18 TIME: 09:55 Subjective Doing well. Less abdominal pain. No nausea or vomiting. Objective Vitals Vital Signs Date Temp Pulse Resp B/P (MAP) Pulse Ox O2 O2 Flow FiO2 Time Delivery Rate 07/13/18 98.8 94 17 140/70 97 Room Air 07:48 (93) 07/10/18 2.0 17:18 Intake and Output 07/12/18 07/12/18 07/13/18 1515:00 23:00 07:00 IntakeIntake Total 1720 ml 1120 ml 2200 ml OutputOutput Total 1005 ml 1610 ml BalanceBalance 1720 ml 115 ml 590 ml Clear to auscultation bilaterally Regular rate and rhythm Left lower quadrant tenderness to palpation. KRISTINE drain in place with small amount of serosanguineous fluid No edema Nonfocal Results Result Diagram: 07/13/18 0501 07/12/18 0503 Medications Medications Current Medications Morphine Sulfate (morphine) 2 mg Q3 PRN IV moderate pain Last administered on 07/13/18at 05:40; Admin Dose 2 MG; Start 07/10/18 at 15:30 Ondansetron HCl (Zofran Inj) 4 mg Q4 PRN IV nausea; Start 07/10/18 at 15:30 Levofloxacin/ Dextrose 100 ml @ 100 mls/hr DAILY IVPB Last administered on 07/13/18at 08:58; Admin Dose 100 MLS/HR; Start 07/10/18 at 15:30 Metronidazole 100 ml @ 100 mls/hr Q8 IVPB Last administered on 07/13/18at 05:40; Admin Dose 100 MLS/HR; Start 07/11/18 at 00:00 Potassium Chloride/Dextrose/ Sod Cl 1,000 ml @ 100 mls/hr Q10H IV Last administered on 07/12/18at 23:34; Admin Dose 100 MLS/HR; Start 07/12/18 at 11:30 VTE Prophylaxis Risk score (from Nsg)>0 risk: 3 SCD applied (from Nsg): Yes Lines/Catheters IV Catheter Type: Saline Lock [place] in Place: No Assessment/Plan Assessment/Plan 63-year-old female with acute sigmoid colitis and pericolonic abscess Status post drainage of abscess and intra-abdominal catheter placement Crohn's exacerbation Recurrent leukocytosis Continue Levaquin and Flagyl Await culture results Monitor CBC GI and surgical follow-up EMIL MORFIN MD July 13, 2018 09:57
--- NOTE | 2018-07-13 14:16 | PN ---
Date/Time of Note Date/Time of Note DATE: 07/13/18 TIME: 14:15 Assessment/Plan VTE Prophylaxis Risk score (from Ns)>0 risk: 3 SCD applied (from Ns): Yes Pharmacological prophylaxis: other (scds) Lines/Catheters IV Catheter Type [facility]from [facility] Saline Lock Urinary Cath still in place: No Assessment/Plan Hospital Course Assessment: Crohn's disease exacerbation Sigmoid colitis with abscess likely secondary to above -Status post drainage and intra-abdominal catheter placement ' - Fluid Cx ESCHERICHIA COLI/ALPHA HEMOLYTIC STREP Leukocytosis- increased today without noted fevers HTN Hx of right hemicolectomy Normocytic anemia Plan: Continue clear liquid diet given increase in WBC and increase in abdominal pain Will re-order CT to reassess abscess and drain placement Patient seen in collaboration with Dr. Landeros Subjective: Course reviewed with nursing staff Patient interviewed and examined All labs, imaging and other results reviewed Pt c/o mild increase in pain from yesterday. No fevers noted Discussed labs and increase in WBC. No c/o n/v will continue cl liq diet Maintain close observation PHYSICAL EXAMINATION: GENERAL: Well developed, well nourished, alert & oriented x 3, in no acute distress SKIN: No lesions HEAD: Normocephalic, atraumatic, no tenderness. EYES: Pupils equal reactive to light and accommodation, full extraocular movements, sclera clear, non-icteric, no discharge. EARS/NOSE AND THROAT: Ears normal, nose normal, oropharynx normal, oral membranes well hydrated without lesions. NECK: Supple, no masses. CHEST: Inspection within normal limits. CARDIOVASCULAR: Heart: Regular rate and rhythm RESPIRATORY: Lungs clear to auscultation GASTROINTESTINAL AND LIVER: Abdomen: Soft, non tenderness, non-distended, no hernias, no masses, no organomegaly, no ascites, no guarding, no rebound te nderness, normoactive bowel sounds. Rectal: Deferred. Result Diagram: 07/13/18 0501 07/12/18 0503 Results 24hrs Laboratory Tests Test 07/13/18 05:01 White Blood Count 18.6 #H Red Blood Count 3.74 L Hemoglobin 10.0 L Hematocrit 32.5 L Mean Corpuscular Volume 86.9 Mean Corpuscular Hemoglobin 26.7 L Mean Corpuscular Hemoglobin Concent 30.8 L Red Cell Distribution Width 13.5 Platelet Count 374 Mean Platelet Volume 11.5 H Immature Granulocytes % 0.700 H Neutrophils % 89.0 H Lymphocytes % 4.3 L Monocytes % 5.5 Eosinophils % 0.2 Basophils % 0.3 Nucleated Red Blood Cells % 0.0 Immature Granulocytes # 0.130 H Neutrophils # 16.6 H Lymphocytes # 0.8 Monocytes # 1.0 H Eosinophils # 0.0 Basophils # 0.1 Nucleated Red Blood Cells # 0.0 Exam/Review of Systems Exam Vitals Vital Signs Date Temp Pulse Resp B/P (MAP) Pulse Ox O2 O2 Flow FiO2 Time Delivery Rate 07/13/18 98.8 94 17 140/70 97 Room Air 07:48 (93) 07/10/18 2.0 17:18 Intake and Output 07/12/18 07/12/18 07/13/18 1515:00 23:00 07:00 IntakeIntake Total 1720 ml 1120 ml 2200 ml OutputOutput Total 1005 ml 1610 ml BalanceBalance 1720 ml 115 ml 590 ml Results Results 24hrs Laboratory Tests Test 07/13/18 05:01 White Blood Count 18.6 #H Red Blood Count 3.74 L Hemoglobin 10.0 L Hematocrit 32.5 L Mean Corpuscular Volume 86.9 Mean Corpuscular Hemoglobin 26.7 L Mean Corpuscular Hemoglobin Concent 30.8 L Red Cell Distribution Width 13.5 Platelet Count 374 Mean Platelet Volume 11.5 H Immature Granulocytes % 0.700 H Neutrophils % 89.0 H Lymphocytes % 4.3 L Monocytes % 5.5 Eosinophils % 0.2 Basophils % 0.3 Nucleated Red Blood Cells % 0.0 Immature Granulocytes # 0.130 H Neutrophils # 16.6 H Lymphocytes # 0.8 Monocytes # 1.0 H Eosinophils # 0.0 Basophils # 0.1 Nucleated Red Blood Cells # 0.0 Medications Medication Current Medications Morphine Sulfate (morphine) 2 mg Q3 PRN IV moderate pain Last administered on 07/13/18at 10:43; Admin Dose 2 MG; Start 07/10/18 at 15:30 Ondansetron HCl (Zofran Inj) 4 mg Q4 PRN IV nausea; Start 07/10/18 at 15:30 Levofloxacin/ Dextrose 100 ml @ 100 mls/hr DAILY IVPB Last administered on 07/13/18at 08:58; Admin Dose 100 MLS/HR; Start 07/10/18 at 15:30 Metronidazole 100 ml @ 100 mls/hr Q8 IVPB Last administered on 07/13/18at 14:01; Admin Dose 100 MLS/HR; Start 07/11/18 at 00:00 Potassium Chloride/Dextrose/ Sod Cl 1,000 ml @ 100 mls/hr Q10H IV Last administered on 07/13/18at 12:11; Admin Dose 100 MLS/HR; Start 07/12/18 at 11:30 GEMMA LGAOS July 13, 2018 14:16
[2018-07-13 14:54] VITALS: BP 133/62; PULSE 98; RESP 16
[2018-07-13] MEDS ORDERED: SOD CHLORIDE 0.9% 100 ML ONE (16:42)
[2018-07-13] MEDS ORDERED: IOHEXOL 300MG/ML 150 ML BTL ONE (16:42)
[2018-07-13 19:44] VITALS: BP 143/73; PULSE 85; RESP 18
[2018-07-14] MEDS: morphine 2 MG INJ IV PRN (00:22)
[2018-07-14] MEDS: D5W-0.45 NACL + KCL 30 MEQ 1,000 ML IV SCH ×2 (01:17→13:30)
[2018-07-14 02:00] VITALS: BP 135/67; PULSE 90; RESP 18
[2018-07-14] MEDS: metroNIDAZOLE 500 MG/NS (PMX) 100 ML IVPB SCH ×2 (05:46→14:37)
[2018-07-14 07:56] VITALS: BP 139/75; PULSE 87; RESP 16
[2018-07-14] MEDS: LEVOFLOXACIN 500MG/D5W (PMX) 100 ML IVPB SCH (08:29)
[2018-07-14] MEDS ORDERED: LEVO500T10 PO (09:01)
[2018-07-14] MEDS ORDERED: METR-122 PO (09:01)
--- NOTE | 2018-07-14 09:02 | PDOCDIS ---
Discharge Instructions CONDITION [id number] Patient Condition: [id number] Good HOME CARE INSTRUCTIONS: [id number] Diet Instructions: [id number] FOLLOW UP/APPOINTMENTS Follow-up Plan pcp [address] Landeros [address] Murray 1 week EMIL MORFIN MD July 14, 2018 09:02
[2018-07-14 13:33] VITALS: BP 135/69; PULSE 88; RESP 16
--- NOTE | 2018-07-14 21:27 | DS ---
DATE OF ADMISSION: 07/10/2018 DATE OF DISCHARGE: 07/14/2018 DISCHARGE DIAGNOSES: 1. Acute sigmoid colitis with pericolonic abscess. 2. Status post interventional radiology drainage of abscess and an intra-abdominal catheter placemen t. 3. Crohn's exacerbation. 4. Hypertension, well controlled. HOSPITAL COURSE: A 63-year-old female who presented to emergency room with complaint of lower abdomi nal pain associated fevers. 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 The patient w as seen in consultation by Dr. Murray and Dr. Landeros. Intraabdominal catheter placement was recommen ded. The catheter was placed and some abscess was drained. The fluid grew E. coli and alpha hemolyt ic strep. The patient received IV Levaquin and Flagyl throughout the hospitalization. Initial white blood cell count was as high as 23,000. WBC on the day of discharge was 13.5. Her abdominal pain h as subsided significantly. The patient is in stable condition for discharge. A repeat CAT scan showed loculated fluid adjacent to the sigmoid colon. The catheter will be removed by Dr. Murray as outpatient. DISCHARGE MEDICATIONS: 1. Levaquin 500 mg p.o. daily x10 days. 2. Flagyl 500 mg p.o. q.8h. x10 days. 3. Amlodipine 10 mg daily. 4. Budesonide 9 mg daily. FOLLOWUP: 1. Follow up with PCP in 1 week. 2. Follow up with Dr. Landeros in 1 week. 3. Follow up with Dr. Murray in 1 week. 4. Home health nurse was arranged. Dictated By: EMIL RUIZ/NTS Conf#: [id number] DID#: [id number] CC: ARMANDO LANDEROS; AIMEE MURRAY MD;*[facility]*
== END 2018-07-14 17:45 | disposition home health service (06) | DRG 387 ==
LOC: E/R 11:49 → 2NE 15:19
PROVIDERS: ADMIT Internal Medicine; ATTEND Internal Medicine
PROC: 0D9N30Z Drainage of Sigmoid Colon with Drainage Device, Percutaneous Approach (ICD-10-PCS; principal; 2018-07-11)
DX: K50.114 Crohn's disease of large intestine with abscess (principal); I10 Essential (primary) hypertension; Z90.49 Acquired absence of other specified parts of digestive tract; Z90.710 Acquired absence of both cervix and uterus; D64.9 Anemia, unspecified; K52.89 Other specified noninfective gastroenteritis and colitis
CPT/HCPCS: 36415; 71045; 74176; 74177; 77012; 80048; 80053; 80076; 81001; 83605; 85025; 85610; 85730; 87070; 87075; 87086; 87102; 87116; 96374; 96375; C1729; J0696; J1956; J2250; J2270; J2405; J3010; J3480; J7030; J7042; Q9967